=== PATIENT | female | born 1970 | race Caucasian/White ===

== ENCOUNTER → 2016-08-11 | Outpatient (CLI) | payer MEDICAID ==
[~2016-08-11] MED LIST: ASPIRIN MICROT325 MG PO; BUPROPION HYDR100 M2 PO; BUSPAR 10MG TAB10 MG PO; CLARITIN 10MG T10 MG PO; DICLOFENAC 50MG50 MG PO; DITROPAN 5MG TAB5 MG PO; GABAPENTIN 600600 MG PO; MECLIZINE HYDRO25 MG PO; METFORMIN 500M500 MG PO; NORA-BE0.35 MG PO; OMEPRAZOLE40 MG PO; PERCOCET1 TAB PO; PHENTERMINE H37.5 M1 PO
[2016-08-11 14:54] LABS: AMPHETAMINES/METAMPHETAMINES NEGATIVE ng/mL (<1000)
[2016-08-20 20:36] LABS: Opiates Negative ng/mL (Cutoff=100)
== END ==
LOC: LAB 14:05
PROVIDERS: Nurse Practitioner Family
DX: Z79.899 Other long term (current) drug therapy (principal)

== ENCOUNTER → 2016-09-28 | Outpatient (CLI) | payer MEDICAID ==
[2016-09-28 15:45] LABS: AMPHETAMINES/METAMPHETAMINES POSITIVE ng/mL (<1000)
== END ==
LOC: LAB 13:37
PROVIDERS: Emergency Medicine
DX: Z79.899 Other long term (current) drug therapy (principal)

== ENCOUNTER → 2016-10-23 | Outpatient (CLI) | payer MEDICAID ==
[2016-10-23 15:17] LABS: AMPHETAMINES/METAMPHETAMINES NEGATIVE ng/mL (<1000)
[2016-11-02 12:36] LABS: Opiates Negative (Cutoff=100)
== END ==
LOC: LAB 14:31
PROVIDERS: Emergency Medicine; Physician Assistant
DX: Z79.899 Other long term (current) drug therapy (principal)

== ENCOUNTER → 2017-05-25 | Outpatient (CLI) | payer MEDICAID ==
[~2017-05-25] MED LIST changes: +PERCOCET 325 MG1 TA4 PO
[2017-05-25 17:01] LABS: AMPHETAMINES/METAMPHETAMINES NEGATIVE ng/mL (<1000)
[2017-05-25 18:49] LABS: HEMOGLOBIN 14.1 g/dL (12.2-16.2); LYMPH # 2.5 K/mm3 (0.7-4.5); LYMPH % 26.4 % (10-50.0)
[2017-05-25 20:00] LABS: BUN 7 mg/dL (7-18)
[2017-05-25 20:06] LABS: GFR (ESTIMATED) 90 ML/MIN (59-)
[2017-05-31 14:36] LABS: Opiates Negative (Cutoff=100)
== END ==
LOC: LAB 15:57
PROVIDERS: Emergency Medicine
DX: R53.83 Other fatigue (principal); Z79.899 Other long term (current) drug therapy

== ENCOUNTER → 2017-06-22 | Outpatient (CLI) | payer MEDICAID ==
[2017-06-22 21:49] LABS: AMPHETAMINES/METAMPHETAMINES NEGATIVE ng/mL (<1000)
== END ==
LOC: LAB 18:00
PROVIDERS: Emergency Medicine
DX: Z79.899 Other long term (current) drug therapy (principal)

== ENCOUNTER 2017-06-25 10:31 | Day surgery (SDC) | payer MEDICAID ==
[~2017-06-25] VITALS: Ht 170.2 cm; Wt 127.0 kg
[2017-06-25 11:17] VITALS: BP 106/69
[2017-06-25 11:42] VITALS: BP 106/69
[2017-06-25 11:44] VITALS: BP 144/89
--- NOTE | 2017-06-25 11:50 | Procedure Note ---
Procedure detail Date of procedure: 06/25/17 Anesthesiologist: Ronny Mcdaniel M.D. Complications: None Pre-procedure diagnosis: Degenerative disc disease of lumbar spine with lumbar radiculopathy symptoms and bulging disc at L4-L5 and L5-S1 Post-procedure diagnosis: Same Indications for procedure: This patient is a pleasant 46-year-old white female who we're treating for low back pain with lumbar radiculopathy symptoms. She's had one lumbar steroid injection done very well with 80 percent relief. Her pain is starting to come back. We'll do a repeat lumbar epidural steroid injection today. Procedure detail: Procedure: Lumbar epidural steroid injection under fluoroscopy Informed consent was obtained and the risks and benefits of the procedure were explained to the patient. The patient was taken to the procedure room and noninvasive monitors placed, including noninvasive blood pressure cuff and pulse oximeter. The back was viewed using C-arm Fluoroscopy and prepped using Betadine as a cleansing solution and the L4-L5 interspace was palpated. Skin and subcutaneous tissues were anesthetized using lidocaine 1.5% and a 25-gauge needle. After this, an 18-gauge Touhy epidural needle was placed into the L4-L5 interspace and advanced using fluoroscopic guidance and loss of resistance to air until the epidural space was encountered. After confirmation of needle placement in the epidural space, with dye, a solution containing lidocaine 1.5%, 4 mL and Depo-Medrol 80 mg were incrementally injected into the lumbar epidural space. The patient tolerated the procedure well with no complications. The patient was observed in the Pain Clinic and then discharged home neurologically intact. Plan and disposition: We will follow-up with this patient in 2 weeks. We'll reevaluate her symptoms at that time. at 1150
[2017-06-25 12:01] VITALS: BP 118/64
== END 2017-06-25 12:02 | disposition home or self-care (01) ==
LOC: PM 10:31
PROC: 3E0R3BZ Introduction of Anesthetic Agent into Spinal Canal, Percutaneous Approach (ICD-10-PCS; principal; 2017-06-25)
PROC: 3E0R33Z Introduction of Anti-inflammatory into Spinal Canal, Percutaneous Approach (ICD-10-PCS; 2017-06-25)
PROC: B01B1ZZ Fluoroscopy of Spinal Cord using Low Osmolar Contrast (ICD-10-PCS; 2017-06-25)
DX: M51.16 Intervertebral disc disorders with radiculopathy, lumbar region (principal); M51.26 Other intervertebral disc displacement, lumbar region
CPT/HCPCS: J1040; Q9966

== ENCOUNTER → 2017-07-26 | Outpatient (CLI) | payer MEDICAID ==
[2017-07-26 14:25] LABS: AMPHETAMINES/METAMPHETAMINES NEGATIVE ng/mL (<1000)
[2017-08-04 10:36] LABS: Opiates Negative (Cutoff=100)
== END ==
LOC: LAB 13:31
PROVIDERS: Emergency Medicine
DX: Z79.899 Other long term (current) drug therapy (principal)